=== PATIENT | male | born 1940 | race Two or more races ===

== ENCOUNTER 2025-03-08 08:42 | Inpatient (IN) | payer OTHER ==
[~2025-03-08] VITALS: Ht 157.5 cm; Wt 59.0 kg
[2025-03-08] MEDS ORDERED: TAMS0.4C PO (09:05)
[2025-03-08] MEDS ORDERED: HORIZANT300 MG (09:05)
[2025-03-08] MEDS ORDERED: NORVASC5 MG PO (09:06)
[2025-03-08] MEDS ORDERED: INDOMETHACIN50 MG PO (09:06)
[2025-03-08] MEDS ORDERED: LIPITOR20 MG PO (09:07)
[2025-03-08] MEDS ORDERED: TOPROL XL25 M1 (09:07)
[2025-03-08] MEDS ORDERED: COZAAR100 MG PO (09:07)
[2025-03-08] MEDS ORDERED: FAMOtidine 10 MG/ML (4ML VIAL) IV ONE (09:15)
[2025-03-08] MEDS ORDERED: FAMOTIDINE/PF 20 MG/2 ML VIAL ONE ×2 (09:39→18:51)
[2025-03-08 10:02] LABS: BASO % 1.0 % (0.1-1.2); EOS # 0.41 (0.04-0.54); EOS % 5.3 % (0.7-7.0); LYMPH # 0.95 (1.18-3.74); LYMPH % 12.3 % (19.3-53.1); MEAN PLATELET VOLUME 9.80 fl (9.4-12.4); MONO # 0.82 (0.24-0.82); MONO % 10.6 % (4.7-12.5); NEUT # 5.41 (1.56-6.13); NEUT % 70.2 % (34.0-71.1); RED CELL DISTRIBUTION WIDTH 13.6 % (11.6-14.4)
[2025-03-08 10:25] LABS: ALT/SGPT 20.0 U/L (12-78); AST/SGOT 14.0 U/L (15-37); BILIRUBIN TOTAL 0.82 mg/dL (0.3-1.2); BUN CREA RATIO 23.0 (7.0-25.0); CREATININE SERUM 1.15 mg/dL (0.70-1.30); GFR 60.58; GLOBULINA 3.5 G/DL (2.4-3.5); GLUCOSE FASTING 107.0 mg/dL (65-100); OSMOLALITY SERUM 290.0 MOSM/KG (275-295)
[2025-03-08 10:26] LABS: INR < 0.93
[2025-03-08 11:01] LABS: URINE APPEARANCE Clear; URINE BILIRRUBIN Negative (NEGATIVE); URINE BLOOD Negative; URINE COLOR Yellow; URINE GLUCOSE Negative (NEGATIVE); URINE KETONE Negative (NEGATIVE); URINE LEUKOCYTE Negative; URINE NITRATE Negative; URINE PROTEIN Negative (NEGATIVE); URINE UROBILINOGEN 1.0 E.U./dl
[2025-03-08 11:05] LABS: URINE BACTERIA 8.3 uL (0.0-1933); URINE WBC 2.8 uL (0.0-23.2)
[2025-03-08 11:21] LABS: URINE CAST 0.00 uL (0.0-1.40); URINE EPITHELIAL CELLS 0.9 uL (0.0-38.8); URINE RBC 1.7 uL (0.0-20.8)
[2025-03-08] MEDS ORDERED: 0.9 % SODIUM CHLORIDE 1,000 ML IV SCH (15:45)
[2025-03-08] MEDS ORDERED: MORPHINE SULFATE 4 MG/ML CARTRIDGE IV PRN (15:45)
[2025-03-08] MEDS ORDERED: ONDANSETRON HCL 4 MG in DEXTROSE 5 % IN WATER 50 ML IV SCH (17:00)
[2025-03-08] MEDS ORDERED: ONDANSETRON HCL 2 MG/ML VIAL ONE (17:54)
[2025-03-08] MEDS ORDERED: LOSARTAN POTASSIUM 100 MG TABLET PO SCH (18:13)
[2025-03-08] MEDS ORDERED: GABAPENTIN 300 MG CAPSULE PO SCH (18:14)
[2025-03-08] MEDS ORDERED: TAMSULOSIN HCL 0.4 MG CAP PO SCH (18:14)
[2025-03-08] MEDS ORDERED: TAMSULOSIN HCL 0.4 MG CAP PO ONE (18:51)
[2025-03-08] MEDS ORDERED: CHLORDIAZEPOXIDE HCL 25 MG CAPSULE PO SCH (19:46)
[2025-03-08] MEDS ORDERED: FAMOTIDINE/PF 20 MG/2 ML VIAL IV SCH (21:00)
[2025-03-08 23:00] VITALS: BP 105/60; O2SAT 97
[2025-03-09 03:02] VITALS: BP 130/66
[2025-03-09 05:40] LABS: COL ADP 128 SECONDS (56-102)
[2025-03-09 05:41] LABS: COL EPI 95 SECONDS (82-175)
[2025-03-09 05:52] LABS: BASO % 0.7 % (0.1-1.2); EOS # 0.33 (0.04-0.54); EOS % 5.7 % (0.7-7.0); LYMPH # 0.82 (1.18-3.74); LYMPH % 14.3 % (19.3-53.1); MEAN PLATELET VOLUME 10.10 fl (9.4-12.4); MONO # 0.77 (0.24-0.82); NEUT # 3.75 (1.56-6.13); NEUT % 65.4 % (34.0-71.1); RED CELL DISTRIBUTION WIDTH 13.7 % (11.6-14.4)
[2025-03-09 05:54] LABS: MONO % 13.4 % (4.7-12.5)
[2025-03-09 06:12] LABS: INR < 0.93
[2025-03-09 07:18] LABS: CHOL HDL RATIO 2.0 (0-5.0); HDL 82.0 mg/dl (40-60); LDL 69.0 mg/dl (0-130); VLDL 16.0 (0-39)
[2025-03-09 07:20] LABS: BUN CREA RATIO 20.0 (7.0-25.0); CREATININE SERUM 0.99 mg/dL (0.70-1.30); GFR 72.02; GLUCOSE FASTING 110.0 mg/dL (65-100); OSMOLALITY SERUM 296.0 MOSM/KG (275-295)
[2025-03-09] MEDS ORDERED: CYANOCOBALAMIN (VITAMIN B-12) 1,000 MCG/ML VIAL IM SCH (09:00)
[2025-03-09] MEDS ORDERED: 0.9 % SODIUM CHLORIDE 1,000 ML IV SCH (09:00)
[2025-03-09] MEDS ORDERED: METOPROLOL SUCCINATE 25 MG TAB.SR.24H PO SCH (09:00)
[2025-03-09] MEDS ORDERED: ENOXAPARIN SODIUM 40 MG/0.4 ML SYRINGE SUBCUTANEO SCH (09:00)
[2025-03-09] MEDS ORDERED: THIAMINE HCL 100 MG TABLET PO SCH (09:00)
[2025-03-09] MEDS ORDERED: ATORVASTATIN CALCIUM 20 MG TABLET PO SCH (09:00)
[2025-03-09 09:25] VITALS: BP 102/54; O2SAT 98
[2025-03-09 11:06] LABS: FOLIC ACID 13.28 ng/ml (4.78-20)
[2025-03-09] MEDS ORDERED: AMINO ACIDS/PROTEIN HYDROLYS 30 ML BLIST.PACK PO SCH (17:00)
[2025-03-09 19:27] VITALS: BP 140/70; O2SAT 98
[2025-03-10 03:39] VITALS: BP 93/52; O2SAT 95
[2025-03-10 09:25] VITALS: BP 92/48
[2025-03-10 10:29] LABS: BASO % 0.8 % (0.1-1.2); EOS # 0.33 (0.04-0.54); EOS % 5.4 % (0.7-7.0); LYMPH # 0.97 (1.18-3.74); LYMPH % 15.9 % (19.3-53.1); MEAN PLATELET VOLUME 9.80 fl (9.4-12.4); MONO # 0.64 (0.24-0.82); MONO % 10.5 % (4.7-12.5); NEUT # 4.10 (1.56-6.13); NEUT % 67.1 % (34.0-71.1); RED CELL DISTRIBUTION WIDTH 13.6 % (11.6-14.4)
[2025-03-10 11:16] LABS: BUN CREA RATIO 16.0 (7.0-25.0); CREATININE SERUM 1.09 mg/dL (0.70-1.30); GFR 64.45; GLUCOSE FASTING 114.0 mg/dL (65-100); OSMOLALITY SERUM 295.0 MOSM/KG (275-295)
[2025-03-10] MEDS ORDERED: RINGERS SOLUTION,LACTATED 1,000 ML IV STA (11:28)
[2025-03-10] MEDS ORDERED: DEXTROSE 5 % IN WATER 1,000 ML IV SCH (12:00)
[2025-03-10] MEDS ORDERED: POLYETHYLENE GLYCOL 3350 17 GM BLIST.PACK PO NR (13:00)
[2025-03-10] MEDS ORDERED: PSYLLIUM HUSK 1 PKT PACKET PO SCH (13:00)
[2025-03-10 16:32] VITALS: BP 127/63; O2SAT 98
[2025-03-10] MEDS ORDERED: DOCUSATE SODIUM 100MG CAP PO SCH (17:00)
[2025-03-11 05:58] VITALS: BP 136/62; O2SAT 96
[2025-03-11] MEDS ORDERED: POLYETHYLENE GLYCOL 3350 17 GM BLIST.PACK PO SCH (09:00)
[2025-03-11 10:14] VITALS: BP 132/73
[2025-03-11 18:55] VITALS: BP 141/68
[2025-03-12 01:03] VITALS: BP 126/69; O2SAT 96
[2025-03-12 08:00] VITALS: BP 146/72; O2SAT 96
[2025-03-12] MEDS ORDERED: POLYETHYLENE GLYCOL 3350 17 GM BLIST.PACK PO SCH (17:00)
[2025-03-12] MEDS ORDERED: CHLORDIAZEPOXIDE HCL 25 MG CAPSULE PO SCH (21:00)
[2025-03-12 21:36] VITALS: BP 146/75
[2025-03-13 01:52] VITALS: BP 134/72; O2SAT 96
[2025-03-13] MEDS ORDERED: CIPROFLOXACIN IN 5 % DEXTROSE 400 MG/200 ML PIGGYBAG IV SCH ×2 (06:00→21:00)
[2025-03-13] MEDS ORDERED: METRONIDAZOLE/SODIUM CHLORIDE 500 MG/100 ML PIGGYBACK IV SCH ×2 (06:00→17:00)
[2025-03-13 09:18] VITALS: BP 164/78; O2SAT 94
[2025-03-13] MEDS ORDERED: CIPROFLOXACIN IN 5 % DEXTROSE 400 MG/200 ML PIGGYBAG IV ONE (12:36)
[2025-03-13] MEDS ORDERED: METRONIDAZOLE/SODIUM CHLORIDE 500 MG/100 ML PIGGYBACK IV ONE (12:36)
[2025-03-13] MEDS ORDERED: BUPIVACAINE HCL/MPF 0.5% 30ML VIAL ONE (14:09)
[2025-03-13] MEDS ORDERED: LIDOCAINE HCL 1%/EPINEPHRINE 20ML VIAL IJ ONE (14:10)
[2025-03-13] MEDS ORDERED: DEXTROSE 50 % IN WATER 0.5 G/ML VIAL IV PRN (16:45)
[2025-03-13] MEDS ORDERED: OxyCODONE HCL 5 MG TABLET (ROXICODONE) PO PRN (16:45)
[2025-03-13] MEDS ORDERED: MORPHINE SULFATE 4 MG/ML CARTRIDGE IV PRN (16:45)
[2025-03-13] MEDS ORDERED: RINGERS SOLUTION,LACTATED 1,000 ML IV SCH (16:45)
[2025-03-13] MEDS ORDERED: ONDANSETRON HCL 2 MG/ML VIAL IV PRN (16:45)
[2025-03-13] MEDS ORDERED: METOCLOPRAMIDE HCL 5 MG/ML VIAL IV SCH (17:00)
[2025-03-13] MEDS ORDERED: SIMETHICONE 125 MG CAPSULE PO SCH (17:00)
[2025-03-13] MEDS ORDERED: GABAPENTIN 300 MG CAPSULE PO SCH (17:00)
[2025-03-13] MEDS ORDERED: HYOSCYAMINE SULFATE 0.125 MG TAB.SUBL SL SCH (17:00)
[2025-03-13 19:21] VITALS: O2SAT 93
[2025-03-13] MEDS ORDERED: ACETAMINOPHEN 500 MG GEL..CAP PO SCH (20:00)
[2025-03-13 20:06] LABS: BASO % 0.5 % (0.1-1.2); EOS # 0.22 (0.04-0.54); EOS % 3.6 % (0.7-7.0); LYMPH # 0.89 (1.18-3.74); LYMPH % 14.5 % (19.3-53.1); MEAN PLATELET VOLUME 10.00 fl (9.4-12.4); MONO # 0.54 (0.24-0.82); MONO % 8.8 % (4.7-12.5); NEUT # 4.45 (1.56-6.13); NEUT % 72.4 % (34.0-71.1); RED CELL DISTRIBUTION WIDTH 13.2 % (11.6-14.4)
[2025-03-13 20:29] LABS: BUN CREA RATIO 14.0 (7.0-25.0); CREATININE SERUM 0.72 mg/dL (0.70-1.30); GFR 104.0; GLUCOSE FASTING 137.0 mg/dL (65-100); OSMOLALITY SERUM 286.0 MOSM/KG (275-295)
[2025-03-13] MEDS ORDERED: FAMOTIDINE/PF 20 MG/2 ML VIAL IV PUSH SCH (21:00)
[2025-03-14] VITALS (9 sets, daily range): BP systolic 111–132; BP diastolic 63–70; O2SAT 90–99
[2025-03-14 05:19] LABS: BASO % 0.2 % (0.1-1.2); EOS # 0.09 (0.04-0.54); EOS % 0.8 % (0.7-7.0); LYMPH # 0.46 (1.18-3.74); LYMPH % 4.3 % (19.3-53.1); MEAN PLATELET VOLUME 10.00 fl (9.4-12.4); MONO # 0.94 (0.24-0.82); MONO % 8.7 % (4.7-12.5); NEUT # 9.20 (1.56-6.13); NEUT % 85.4 % (34.0-71.1); RED CELL DISTRIBUTION WIDTH 13.2 % (11.6-14.4)
[2025-03-14 05:31] LABS: BUN CREA RATIO 12.0 (7.0-25.0); CREATININE SERUM 0.92 mg/dL (0.70-1.30); GFR 78.38; GLUCOSE FASTING 119.0 mg/dL (65-100); OSMOLALITY SERUM 286.0 MOSM/KG (275-295)
[2025-03-14] MEDS ORDERED: MAGNESIUM SULFATE IN WATER 50 ML IV ONE (08:15)
[2025-03-14] MEDS ORDERED: LACTOBACILLUS ACIDOPHILUS 1 CAP CAP PO SCH (09:00)
[2025-03-14] MEDS ORDERED: MAGNESIUM SULFATE IN WATER 50 ML IV NR (10:00)
[2025-03-14 12:29] LABS: URINE APPEARANCE Clear; URINE BILIRRUBIN Negative (NEGATIVE); URINE BLOOD Moderate; URINE COLOR Yellow; URINE GLUCOSE Negative (NEGATIVE); URINE KETONE Negative (NEGATIVE); URINE LEUKOCYTE Trace; URINE NITRATE Negative; URINE PROTEIN Trace (NEGATIVE); URINE UROBILINOGEN 0.2 E.U./dl
[2025-03-14 12:46] LABS: URINE BACTERIA 81.5 uL (0.0-1933); URINE CAST 2.78 uL (0.0-1.40); URINE EPITHELIAL CELLS 6.3 uL (0.0-38.8); URINE RBC 63.7 uL (0.0-20.8); URINE WBC 24.4 uL (0.0-23.2)
[2025-03-14] MEDS ORDERED: ENOXAPARIN SODIUM 40 MG/0.4 ML SYRINGE SUBCUTANEO SCH (17:00)
[2025-03-14] MEDS ORDERED: CIPROFLOXACIN IN 5 % DEXTROSE 400 MG/200 ML PIGGYBAG IV SCH (21:00)
[2025-03-14 21:55] LABS: ABG PH 7.373 (7.35-7.45); ABG PO2 88.9 mmHg (80-100); BICARBONATE 28.0 mmol/l (23-25)
[2025-03-14 23:30] LABS: o2 28 %
[2025-03-15] VITALS (8 sets, daily range): BP systolic 111–140; BP diastolic 64–72; O2SAT 94–97
[2025-03-15 05:16] LABS: BASO % 0.3 % (0.1-1.2); EOS # 0.08 (0.04-0.54); EOS % 0.7 % (0.7-7.0); LYMPH # 0.30 (1.18-3.74); LYMPH % 2.5 % (19.3-53.1); MEAN PLATELET VOLUME 9.90 fl (9.4-12.4); MONO # 0.65 (0.24-0.82); MONO % 5.5 % (4.7-12.5); NEUT # 10.61 (1.56-6.13); NEUT % 90.2 % (34.0-71.1); RED CELL DISTRIBUTION WIDTH 13.0 % (11.6-14.4)
[2025-03-15 06:01] LABS: ALT/SGPT 28.0 U/L (12-78); AST/SGOT 59.0 U/L (15-37); BILIRUBIN TOTAL 0.75 mg/dL (0.3-1.2); BUN CREA RATIO 14.0 (7.0-25.0); CREATININE SERUM 0.92 mg/dL (0.70-1.30); GFR 78.38; GLOBULINA 3.1 G/DL (2.4-3.5); GLUCOSE FASTING 116.0 mg/dL (65-100); OSMOLALITY SERUM 277.0 MOSM/KG (275-295)
[2025-03-15] MEDS ORDERED: ENOXAPARIN SODIUM 40 MG/0.4 ML SYRINGE SUBCUTANEO SCH (09:00)
[2025-03-15] MEDS ORDERED: MORPHINE SULFATE 4 MG/ML CARTRIDGE IV PRN (10:05)
[2025-03-15 15:34] LABS: BUN CREA RATIO 14.0 (7.0-25.0); CREATININE SERUM 1.15 mg/dL (0.70-1.30); GFR 60.58; GLUCOSE FASTING 107.0 mg/dL (65-100); OSMOLALITY SERUM 279.0 MOSM/KG (275-295)
[2025-03-15] MEDS ORDERED: POTASSIUM CHLORIDE/D5-0.45NACL 1,000 ML IV SCH (17:00)
[2025-03-15] MEDS ORDERED: MEROPENEM 500 MG/VIAL VIAL IV SCH (18:00)
[2025-03-15] MEDS ORDERED: VANCOMYCIN HCL 1,000 MG VIAL IV SCH (21:00)
[2025-03-15] MEDS ORDERED: TAMSULOSIN HCL 0.4 MG CAP PO SCH (21:00)
[2025-03-16] VITALS (9 sets, daily range): BP systolic 130–148; BP diastolic 70–81; O2SAT 91–100
[2025-03-16 05:41] LABS: BASO % 0.2 % (0.1-1.2); EOS # 0.03 (0.04-0.54); EOS % 0.2 % (0.7-7.0); LYMPH # 0.54 (1.18-3.74); LYMPH % 4.0 % (19.3-53.1); MEAN PLATELET VOLUME 10.10 fl (9.4-12.4); MONO # 1.00 (0.24-0.82); MONO % 7.4 % (4.7-12.5); NEUT # 11.79 (1.56-6.13); NEUT % 87.7 % (34.0-71.1); RED CELL DISTRIBUTION WIDTH 12.8 % (11.6-14.4)
[2025-03-16 06:36] LABS: BUN CREA RATIO 20.0 (7.0-25.0); CREATININE SERUM 1.24 mg/dL (0.70-1.30); GFR 55.41; GLUCOSE FASTING 139.0 mg/dL (65-100); OSMOLALITY SERUM 286.0 MOSM/KG (275-295)
[2025-03-16] MEDS ORDERED: GABAPENTIN 300 MG CAPSULE PO ONE (22:15)
[2025-03-17] VITALS (8 sets, daily range): BP systolic 126–156; BP diastolic 67–85; O2SAT 97–100
[2025-03-17] MEDS ORDERED: GABAPENTIN 300 MG CAPSULE PO SCH (01:00)
[2025-03-17 08:18] LABS: BASO % 0.3 % (0.1-1.2); EOS # 0.31 (0.04-0.54); EOS % 3.2 % (0.7-7.0); LYMPH # 0.89 (1.18-3.74); LYMPH % 9.3 % (19.3-53.1); MEAN PLATELET VOLUME 9.90 fl (9.4-12.4); MONO # 0.82 (0.24-0.82); MONO % 8.6 % (4.7-12.5); NEUT # 7.49 (1.56-6.13); NEUT % 78.4 % (34.0-71.1); RED CELL DISTRIBUTION WIDTH 12.8 % (11.6-14.4)
[2025-03-17 08:31] LABS: ALT/SGPT 21.0 U/L (12-78); AST/SGOT 48.0 U/L (15-37); BILIRUBIN TOTAL 0.41 mg/dL (0.3-1.2); BUN CREA RATIO 27.0 (7.0-25.0); CREATININE SERUM 0.86 mg/dL (0.70-1.30); GFR 84.52; GLOBULINA 2.7 G/DL (2.4-3.5); GLUCOSE FASTING 100.0 mg/dL (65-100); OSMOLALITY SERUM 289.0 MOSM/KG (275-295)
[2025-03-17] MEDS ORDERED: hydrALAZINE HCL 20 MG VIAL IV PRN (10:15)
[2025-03-18] VITALS (8 sets, daily range): BP systolic 116–154; BP diastolic 51–64; O2SAT 95–99
[2025-03-18 06:00] LABS: BASO % 0.3 % (0.1-1.2); EOS # 0.27 (0.04-0.54); EOS % 4.4 % (0.7-7.0); LYMPH # 0.77 (1.18-3.74); LYMPH % 12.6 % (19.3-53.1); MEAN PLATELET VOLUME 10.10 fl (9.4-12.4); MONO # 0.79 (0.24-0.82); NEUT # 4.26 (1.56-6.13); NEUT % 69.6 % (34.0-71.1); RED CELL DISTRIBUTION WIDTH 12.6 % (11.6-14.4)
[2025-03-18 06:01] LABS: MONO % 12.9 % (4.7-12.5)
[2025-03-18 06:25] LABS: ALT/SGPT 16.0 U/L (12-78); AST/SGOT 25.0 U/L (15-37); BILIRUBIN TOTAL 0.4 mg/dL (0.3-1.2); BUN CREA RATIO 27.0 (7.0-25.0); CREATININE SERUM 0.64 mg/dL (0.70-1.30); GFR 118.86; GLOBULINA 2.3 G/DL (2.4-3.5); GLUCOSE FASTING 81.0 mg/dL (65-100); OSMOLALITY SERUM 293.0 MOSM/KG (275-295)
[2025-03-18] MEDS ORDERED: SOD FERRIC GLUC COMPLX/SUCROSE 62.5 MG in 0.9 % SODIUM CHLORIDE 50 ML IV SCH (17:00)
[2025-03-19] VITALS (9 sets, daily range): BP systolic 143–171; BP diastolic 66–75; O2SAT 88–99
[2025-03-19 08:00] LABS: ob POSITIVE (NEGATIVE)
[2025-03-19] MEDS ORDERED: ALLOPURINOL 100 MG TABLET PO SCH (09:00)
[2025-03-19] MEDS ORDERED: VANCOMYCIN HCL 5 MG/ML REDILUIDO IV SCH (21:00)
[2025-03-20] VITALS (7 sets, daily range): BP systolic 139–182; BP diastolic 60–80; O2SAT 94–99
[2025-03-20 04:50] LABS: BASO % 0.5 % (0.1-1.2); EOS # 0.18 (0.04-0.54); EOS % 2.2 % (0.7-7.0); LYMPH # 0.86 (1.18-3.74); LYMPH % 10.6 % (19.3-53.1); MEAN PLATELET VOLUME 9.70 fl (9.4-12.4); MONO # 1.16 (0.24-0.82); NEUT # 5.85 (1.56-6.13); NEUT % 71.8 % (34.0-71.1); RED CELL DISTRIBUTION WIDTH 12.4 % (11.6-14.4)
[2025-03-20 04:53] LABS: MONO % 14.3 % (4.7-12.5)
[2025-03-20 05:15] LABS: ALT/SGPT 14.0 U/L (12-78); AST/SGOT 15.0 U/L (15-37); BILIRUBIN TOTAL 0.39 mg/dL (0.3-1.2); BUN CREA RATIO 17.0 (7.0-25.0); GFR 130.56; GLOBULINA 2.6 G/DL (2.4-3.5); GLUCOSE FASTING 104.0 mg/dL (65-100); OSMOLALITY SERUM 288.0 MOSM/KG (275-295)
[2025-03-20 05:21] LABS: CREATININE SERUM 0.59 mg/dL (0.70-1.30)
[2025-03-20] MEDS ORDERED: KETOROLAC TROMETHAMINE 30 MG VIAL IV NR (19:45)
[2025-03-21] VITALS (8 sets, daily range): BP systolic 117–131; BP diastolic 56–69; O2SAT 90–97
[2025-03-21] MEDS ORDERED: VITAMIN B COMPLEX/LYSINE 15 ML BLIST.PACK PO SCH (17:00)
[2025-03-21] MEDS ORDERED: GABAPENTIN 600 MG TABLET PO STA (23:48)
[2025-03-22] VITALS (9 sets, daily range): BP systolic 134–160; BP diastolic 70–76; O2SAT 95–100
[2025-03-22] MEDS ORDERED: GABAPENTIN 300 MG CAPSULE PO SCH (09:00)
[2025-03-22] MEDS ORDERED: COLCHICINE 0.6 MG TABLET PO NR (09:00)
[2025-03-22] MEDS ORDERED: GABAPENTIN 600 MG TABLET PO SCH (21:00)
[2025-03-23] VITALS (8 sets, daily range): BP systolic 91–128; BP diastolic 55–70; O2SAT 93–99
[2025-03-23] MEDS ORDERED: KETOROLAC TROMETHAMINE 30 MG VIAL IM ONE (03:15)
[2025-03-23 06:14] LABS: BASO % 0.6 % (0.1-1.2); EOS # 0.27 (0.04-0.54); EOS % 3.8 % (0.7-7.0); LYMPH # 0.87 (1.18-3.74); LYMPH % 12.2 % (19.3-53.1); MEAN PLATELET VOLUME 10.40 fl (9.4-12.4); MONO # 1.19 (0.24-0.82); NEUT # 4.71 (1.56-6.13); NEUT % 66.0 % (34.0-71.1); RED CELL DISTRIBUTION WIDTH 13.1 % (11.6-14.4)
[2025-03-23 06:39] LABS: MONO % 16.7 % (4.7-12.5)
[2025-03-23] MEDS ORDERED: INDOMETHACIN 50 MG CAPSULE PO SCH (09:00)
[2025-03-23 09:35] LABS: ALT/SGPT 13.0 U/L (12-78); AST/SGOT 16.0 U/L (15-37); BILIRUBIN TOTAL 0.28 mg/dL (0.3-1.2); BUN CREA RATIO 24.0 (7.0-25.0); CREATININE SERUM 0.55 mg/dL (0.70-1.30); GFR 141.57; GLOBULINA 2.4 G/DL (2.4-3.5); GLUCOSE FASTING 97.0 mg/dL (65-100); OSMOLALITY SERUM 294.0 MOSM/KG (275-295)
[2025-03-24] VITALS: BP 159/72; O2SAT 100; O2SAT 90
[2025-03-24 08:58] VITALS: BP 160/75; O2SAT 98
[2025-03-24] MEDS ORDERED: SODIUM CHLORIDE 0.45 % 1,000 ML IV SCH (12:15)
[2025-03-24] MEDS ORDERED: LOSARTAN POTASSIUM 25 MG TABLET PO NR (12:30)
[2025-03-24 16:17] VITALS: BP 135/72; O2SAT 99
[2025-03-24 16:51] VITALS: O2SAT 100
[2025-03-24 19:23] VITALS: O2SAT 90
[2025-03-25] VITALS (9 sets, daily range): BP systolic 126–160; BP diastolic 57–65; O2SAT 90–100
[2025-03-25] MEDS ORDERED: LOSARTAN POTASSIUM 25 MG TABLET PO SCH (09:00)
[2025-03-26 02:04] VITALS: O2SAT 90
[2025-03-26 02:57] VITALS: BP 128/66; O2SAT 100
[2025-03-26 06:07] VITALS: O2SAT 100
[2025-03-26 06:45] LABS: BASO % 0.8 % (0.1-1.2); EOS # 0.36 (0.04-0.54); EOS % 5.0 % (0.7-7.0); LYMPH # 1.29 (1.18-3.74); LYMPH % 17.8 % (19.3-53.1); MEAN PLATELET VOLUME 9.30 fl (9.4-12.4); MONO # 0.93 (0.24-0.82); NEUT # 4.57 (1.56-6.13); NEUT % 63.0 % (34.0-71.1); RED CELL DISTRIBUTION WIDTH 12.9 % (11.6-14.4)
[2025-03-26 06:57] LABS: MONO % 12.8 % (4.7-12.5)
[2025-03-26 07:51] LABS: ALT/SGPT 21.0 U/L (12-78); AST/SGOT 28.0 U/L (15-37); BILIRUBIN TOTAL 0.29 mg/dL (0.3-1.2); BUN CREA RATIO 22.0 (7.0-25.0); CREATININE SERUM 0.69 mg/dL (0.70-1.30); GFR 108.97; GLOBULINA 2.7 G/DL (2.4-3.5); GLUCOSE FASTING 85.0 mg/dL (65-100); OSMOLALITY SERUM 291.0 MOSM/KG (275-295)
[2025-03-26 08:24] VITALS: BP 146/69
[2025-03-26 09:16] VITALS: O2SAT 94
== END 2025-03-26 14:55 | disposition home or self-care (01) | DRG 329 ==
LOC: ER 08:43 → SEC-K 16:10 → MEDI 16:10 → MEDJ 03-09 16:15 → O/R 03-20 16:41 → MEDI 03-20 16:42
PROVIDERS: General Practice; Internal Medicine; Internal Medicine Infectious Disease; Internal Medicine Nephrology; Pain Medicine Interventional Pain Medicine; Surgery; ADMIT Surgery; ATTEND Surgery
PROC: BW21YZZ Computerized Tomography (CT Scan) of Abdomen and Pelvis using Other Contrast (ICD-10-PCS; 2025-03-08)
PROC: BB24Y0Z Computerized Tomography (CT Scan) of Bilateral Lungs using Other Contrast, Unenhanced and Enhanced (ICD-10-PCS; 2025-03-08)
PROC: B246ZZZ Ultrasonography of Right and Left Heart (ICD-10-PCS; 2025-03-09)
PROC: BW28ZZZ Computerized Tomography (CT Scan) of Head (ICD-10-PCS; 2025-03-11)
PROC: 07BB4ZZ Excision of Mesenteric Lymphatic, Percutaneous Endoscopic Approach (ICD-10-PCS; 2025-03-13)
PROC: 0DBU4ZZ Excision of Omentum, Percutaneous Endoscopic Approach (ICD-10-PCS; 2025-03-13)
PROC: 4A12X4Z Monitoring of Cardiac Electrical Activity, External Approach (ICD-10-PCS; 2025-03-13)
PROC: 0DTF4ZZ Resection of Right Large Intestine, Percutaneous Endoscopic Approach (ICD-10-PCS; principal; 2025-03-13 14:45)
PROC: BW21ZZZ Computerized Tomography (CT Scan) of Abdomen and Pelvis (ICD-10-PCS; 2025-03-19)
PROC: B54DZZZ Ultrasonography of Bilateral Lower Extremity Veins (ICD-10-PCS; 2025-03-20)
PROC: B44HZZZ Ultrasonography of Bilateral Lower Extremity Arteries (ICD-10-PCS; 2025-03-20)
PROC: BB24ZZZ Computerized Tomography (CT Scan) of Bilateral Lungs (ICD-10-PCS; 2025-03-22)
DX: C18.0 Malignant neoplasm of cecum (principal); A41.9 Sepsis, unspecified organism; C78.00 Secondary malignant neoplasm of unspecified lung; E87.0 Hyperosmolality and hypernatremia; N39.0 Urinary tract infection, site not specified; N18.9 Chronic kidney disease, unspecified; M25.462 Effusion, left knee; R50.82 Postprocedural fever; E78.49 Other hyperlipidemia; R91.8 Other nonspecific abnormal finding of lung field; E87.8 Other disorders of electrolyte and fluid balance, not elsewhere classified; D53.1 Other megaloblastic anemias, not elsewhere classified; S00.83XA Contusion of other part of head, initial encounter; W13.3XXA Fall through floor, initial encounter; Y92.231 Patient bathroom in hospital as the place of occurrence of the external cause; R00.0 Tachycardia, unspecified; D72.828 Other elevated white blood cell count; K63.89 Other specified diseases of intestine